=== PATIENT | male | born 1950 | race Caucasian/White ===

== ENCOUNTER 2016-06-24 18:20 | Emergency (ER) | payer OTHER ==
[2016-06-24 19:54] VITALS: BP 151/82
[2016-06-24] MEDS ORDERED: Tetan/Diph/Pertus SYR(Tdap)* 0.5 ML SYR(BOOSTRIX) use SYR IM ONE (21:07)
[2016-06-24] MEDS ORDERED: Benzoin Compound STICK ONE (21:08)
--- NOTE | 2016-06-24 21:53 | UC ---
Jean Pierre Mercado Erika, scribed for Carine Arreola DO on 06/24/16 at 2107 . Laceration HPI - HPI Summary HPI Summary: Patient is a 66-year-old male presenting to [facility] with a CC of laceration to the right middle finger at 18:00 today. Pt reports he cut his finger on a mug as he fell trying to catch a moth with the mug. He also reports an abrasion the the anterior left lower leg. He denies head injury. Pt currently denies pain to the finger. He does not believe there is a FB in the finger tip lac. He denies fever , chills, diaphoresis, sore throat, nausea, vomiting, diarrhea, and any pain. Hx asthma, gout. FHx cardiac disease. Pt is unsure of his most recent tetanus. - History Of Current Complaint Chief Complaint: UCLaceration Stated Complaint: FINGER LACERATION Time Seen by Provider: 06/24/16 21:05 Hx Obtained From: Patient Laceration Location: Finger - right middle finger Mechanism Of Injury: Sharp Trauma Onset/Duration: Sudden Onset, Lasting Hours, Still Present Severity: Mild Pain Intensity: 2 Pain Scale Used: 0-10 Numeric - Allergies/Home Medications Allergies/Adverse Reactions: Allergies Allergy/AdvReac Type Severity Reaction Status Date / Time Penicillins Allergy Severe Anaphylatic Verified 06/24/16 19:54 Shock Home Medications: Home Medications Ferrous Sulfate [Iron (Ferrous Sulfate)] 06/24/16 [History Confirmed 06/24/16] PMH/Surg Hx/FS Hx/Imm Hx - Additional Past Medical History Additional PMH: Gout Endocrine History Of: Denies: Diabetes, Thyroid Disease Cardiovascular History Of: Denies: Cardiac Disorders, Hypertension Respiratory History Of: Reports: Asthma Denies: COPD GI/ History Of: Denies: Ulcer - Surgical History Surgical History: Yes Surgery Procedure, Year, and Place: 02/2010 [facility]- FX 4th/5th (left) metacarpals w /screws - Family History Known Family History: Positive: Cardiac Disease Negative: Hypertension, Diabetes - Social History Occupation: Employed Full-time Alcohol Use: None Substance Use Type: None Smoking Status (MU): Never Smoked Tobacco When Did the Patient Quit Smoking/Using Tobacco: 40 YRS AGO - Immunization History Most Recent Tetanus Shot: UNKNOWN Review of Systems Constitutional: Negative Skin: Other - right middle finger laceration, LLE abrasion Eyes: Negative ENT: Negative Respiratory: Negative Cardiovascular: Negative Gastrointestinal: Negative Genitourinary: Negative Motor: Negative Neurovascular: Negative Musculoskeletal: Negative Neurological: Negative Psychological: Negative All Other Systems Reviewed And Are Negative: Yes Physical Exam Triage Information Reviewed: Yes Appearance: Well-Appearing, No Pain Distress, Well-Nourished Vital Signs: Initial Vital Signs Temp 99.2 F 06/24/16 19:50 Pulse 59 06/24/16 19:50 Resp 16 06/24/16 19:50 BP 151/82 06/24/16 19:50 Vital Signs Reviewed: Yes Eyes: Positive: Conjunctiva Clear. Negative: Discharge ENT: Positive: Hearing grossly normal. Negative: Muffled/hoarse voice Neck: Positive: Supple, Nontender Respiratory: Positive: Lungs clear, Normal breath sounds, No respiratory distress, No accessory muscle use Cardiovascular: Positive: RRR - noted to be 59 bpm on triage, No Murmur Musculoskeletal Exam: Normal Neurological: Positive: Alert, Muscle Tone Normal Psychological Exam: Normal Psychological: Positive: Age Appropriate Behavior Skin Exam: Other - 0.75 cm laceration at the tip of the right middle finger. 1 cm small abrasion to the left ferris Laceration Repair - Laceration Repair 1 Description: Linear Laceration Size After Repair: Length (cm) - 0.75 Cleansing Completed Via Routine Prep: Yes Closure Material: Skin Adhesive, SteriStrips - 1 Laceration Course/Dx - Differential Dx - Laceration/Wound Differental Diagnoses: Abrasion, Laceration Provider Diagnoses: finger lac Discharge - Discharge Plan Condition: Stable Disposition: HOME Patient Education Materials: Splint Care (ED), Finger Laceration (ED), Skin Adhesive Care (ED), Steristrips (ED) Referrals: Johnson Rodríguez MD [Primary Care Provider] - The documentation as recorded by the Jean Pierre redman Erika accurately reflects the service I personally performed and the decisions made by , Carine Arreola DO.
== END 2016-06-24 21:25 | disposition home or self-care (01) ==
LOC: UCEAST 18:20
DX: S61.212A Laceration without foreign body of right middle finger without damage to nail, initial encounter (principal); S80.812A Abrasion, left lower leg, initial encounter; W18.02XA Striking against glass with subsequent fall, initial encounter; Y93.89 Activity, other specified; Y92.9 Unspecified place or not applicable; Z23 Encounter for immunization; Z88.0 Allergy status to penicillin; Z87.891 Personal history of nicotine dependence
CPT/HCPCS: 12001; 90471; 90715; 99213; G0463

== ENCOUNTER 2016-09-19 11:11 | Day surgery (SDC) | payer MEDICARE, OTHER ==
[~2016-09-19 11:11] MED LIST: Buffered Lidocaine 1% SYRIN* 3 ML/SYR SYRINGE INTRADERM ONE
[2016-09-19] MEDS ORDERED: Clindamycin 900 MG IVPREMIX(* 900 MG/50 ML SDV IV ONE (11:17)
[2016-09-19] MEDS ORDERED: fentaNYL* 50 MCG/ML 2 ML VIAL (100 MCG VIAL) ONE (13:20)
[2016-09-19] MEDS ORDERED: Midazolam* 1 MG/ML 2 ML VIAL (2 MG) ONE (13:20)
[2016-09-19] MEDS ORDERED: Lidocaine 1% INJ* 10 MG/ML 30 ML SDV ONE (14:12)
--- NOTE | 2016-09-19 15:31 | SURGPN ---
Brief Operative Note - Surgery Procedures: Procedures OPERATIVE REPORT PRE-OP: Colon cancer POST-OP: Same PROCEDURE: Insertion of left chest wall 8F PowerPort SURGEON: MD Kyleigh ANESTHESIA:Local with [facility] Dr. Pittman ASST: none IVF: min EBL: min SPECIMEN:None DRAIN: none WOUND CLASS: One COMPLICATIONS: none TO PACU
--- NOTE | 2016-09-19 16:18 | RAD ---
HISTORY: Status post PowerPort placement COMPARISONS: June 10, 2015 VIEWS:1: Single frontal portable view of the chest at 3:55 PM FINDINGS: LINES AND TUBES: There is left-sided chest port from a subclavian approach with the tip overlying the superior vena cava CARDIOMEDIASTINAL SILHOUETTE: The cardiomediastinal silhouette is normal for portable technique. PLEURA: The costophrenic angles are sharp. No pleural abnormalities are noted. There is no appreciable pneumothorax. LUNG PARENCHYMA: There is minimal linear pleural parenchymal scarring of left lung base ABDOMEN: The upper abdomen is clear. There is no subphrenic gas. BONES AND SOFT TISSUES: No bone or soft tissue abnormalities are noted. IMPRESSION: LINES AND TUBES ABOVE. NO ACTIVE CARDIOPULMONARY DISEASE.
[2016-09-19 16:25] VITALS: BP 138/87
--- NOTE | 2016-09-20 07:23 | RAD ---
INDICATION: chest port placement COMPARISONS: None relevant TECHNIQUE: Fluoroscopy was provided for a vascular access procedure. Total fluoroscopy time is: 40 seconds FINDINGS: Spot images demonstrate a left-sided chest port from a subclavian approach IMPRESSION: FLUOROSCOPY WAS PROVIDED FOR A VASCULAR ACCESS PROCEDURE CPT II Codes: 6045F
--- NOTE | 2016-09-20 16:26 | OP ---
DATE OF OPERATION: 09/19/16 - [facility] DATE OF : 52 SURGEON: Dr. Arizmendi. MANAGEMENT LIAISON: None. ANESTHESIA: Local with monitored anesthesia care with Dr. Pittman. PRE-OP DIAGNOSIS: Metastatic colon cancer. POST-OP DIAGNOSIS: Metastatic colon cancer. OPERATIVE PROCEDURE: Insertion of an 8-Lao PowerPort percutaneously into the left subclavian vein with needle in. ESTIMATED BLOOD LOSS: Minimal. WOUND CLASSIFICATION: One. COMPLICATIONS: None. DRAINS: None. SPECIMENS: None. DESCRIPTION OF PROCEDURE: Written informed consent was obtained, the left and right chest were marked with indelible ink and preoperative antibiotics were administered. The patient was taken to the operating room and placed in the supine position. Sequential compression devices and a warming blanket were applied. Anesthesia was administered. The left and right chest and neck were prepped and draped in usual in the usual sterile fashion. Time-out verification was completed. The patient was placed Trendelenburg position and 1% lidocaine with epinephrine was infiltrated in the left infraclavicular area at the mid line and using an 18 -gauge Cook needle, after about the fourth pass under the clavicle, I was able to puncture the subclavian vein with good blood return and the guidewire was inserted without difficulty. This was confirmed to be in the superior vena cava by fluoroscopy. Transverse incision was made several fingers breadths below the puncture site and a subcutaneous pocket was made large enough to fit the port. The catheter was tunneled from the pocket site to the initial puncture site. Using the peel away sheath dilator, the catheter was inserted into the superior vena cava at just above the juncture with the right atrium. There was good blood returned and it flushed nicely at this level. The catheter was cut to the appropriate length, cut and attached to the port in usual fashion, which was then placed into the pocket. I was able to flush and draw blood once again in this position and the port was sutured in the subcutaneous tissue with two separate 3-0 Prolene sutures. Hemostasis was assured. The puncture site as well as the pocket site, incisions were closed with 3-0 and 4-0 Polysorb suture. Steri-Strips were applied. The patient was to start chemotherapy early in the morning, thus the right angle Ordoñez needle was then used to access the port, flushed with saline and subsequently with heparin and a dry sterile occlusive dressing was placed. The patient tolerated the procedure well and was taken to the recovery room in stable condition. Postprocedural chest x-ray showed the catheter to be in good position without evidence of pneumothorax. CC: [facility]; Dr. Roe Estes; Dr. Johnson Rodríguez * [id number]/[facility] #: [id number] MTDD
== END 2016-09-19 16:26 | disposition home or self-care (01) ==
LOC: OR 11:11
PROVIDERS: ATTEND Surgery
DX: C18.9 Malignant neoplasm of colon, unspecified (principal); C78.7 Secondary malignant neoplasm of liver and intrahepatic bile duct; J45.909 Unspecified asthma, uncomplicated; M10.9 Gout, unspecified; G47.33 Obstructive sleep apnea (adult) (pediatric)
CPT/HCPCS: 71010; 76000; C1788; J1642; J2001; J2250; J3010

== ENCOUNTER 2017-09-15 10:17 | Emergency (ER) | payer OTHER ==
[2017-09-15] MEDS ORDERED: HYDROmorphone INJ* 2 MG/ML CARPUJECT SYRINGE IV SLOW PU ONE (10:58)
[2017-09-15] MEDS ORDERED: Ondansetron INJ* 2 MG/ML VIAL IV ONE (10:58)
[2017-09-15] MEDS ORDERED: NS 0.9% 1000 ML* 1,000 ML IV ONE (10:58)
[2017-09-15 11:23] LABS: Hematocrit 36 % (42-52); Hemoglobin 11.8 g/dl (14.0-18.0); Mean Corpuscular HGB Conc 33 g/dl (31-36); Mean Corpuscular Hemoglobin 30 pg (27-31); Mean Corpuscular Volume 91 fL (80-94); Mean Platelet Volume 7.7 um3 (7.4-10.4); Platelet Count 182 10^3/ul (150-450); Red Cell Distribution Width 19 % (10.5-15)
[2017-09-15 11:43] LABS: INR 0.98 (0.77-1.02)
[2017-09-15 11:47] LABS: EGFR Non-African American 87.8 (>60)
[2017-09-15] MEDS ORDERED: Iohexol 300* (CONTRAST) 10 ML SDV IV ONE (11:56)
[2017-09-15 11:58] LABS: ABS Basophils 0 10^3/ul (0-0.2); ABS Eosinophils 0.1 10^3/ul (0-0.6); ABS Lymphocytes 0.7 10^3/ul (1.0-4.8); ABS Monocytes 0.5 10^3/ul (0-0.8); ABS Neutrophils 0.7 10^3/ul (1.5-7.7); ABS Nucleated RBC 0 10^3/ul; Eosinophil % 4.2 % (0-6); Lymphocyte % 34.4 % (25-47); Nucleated Red Blood Cells % 0.1
--- NOTE | 2017-09-15 12:24 | RAD ---
INDICATION: Small bowel obstruction. COMPARISON: Comparison is made with a prior CT of the abdomen and pelvis from August 04, 2017. TECHNIQUE: Frontal supine films of the abdomen were obtained. FINDINGS: The small bowel and colon appear nondistended. There are a couple small calcific densities which project over the pelvis suggestive of phleboliths. IMPRESSION: NO EVIDENCE FOR OBSTRUCTION.
--- NOTE | 2017-09-15 12:29 | RAD ---
INDICATION: Small bowel obstruction. COMPARISON: Comparison is made with a prior chest x-ray study from September 19, 2016. TECHNIQUE: Dual-energy PA views of the chest were obtained. FINDINGS: There is a PowerPort central venous catheter entering on the left side. The catheter tip projects over the right atrium. The heart is within normal limits in size. The lungs are clear. No pleural effusion is seen. There is an air-fluid level present in the right upper quadrant possibly within the colon. No free intraperitoneal air is seen. IMPRESSION: 1. NO EVIDENCE FOR ACUTE DISEASE IN THE CHEST. 2. THERE IS A SOMEWHAT UNUSUAL AIR-FLUID LEVEL IN THE RIGHT UPPER QUADRANT LIKELY WITHIN THE HEPATIC FLEXURE. RECOMMEND A CT OF THE ABDOMEN AND PELVIS FOR FURTHER EVALUATION.
--- NOTE | 2017-09-15 14:01 | RAD ---
Indication: Abdominal pain, small bowel obstruction CT of the abdomen and pelvis was performed after oral and IV contrast demonstration. Coronal and sagittal reconstructed images were obtained. Comparison is made with previous exam dated August 04, 2017. The lung bases demonstrate no pleural fluid. No evidence of alveolar consolidation is noted. Heart demonstrates no pericardial effusion. The patient has had a right lobe liver resection. Lesions in the left lobe of liver appear to be less prominent on the current exam than on the prior exam. They are barely perceptible on the current exam and appears smaller. No intrahepatic ductal dilatation is noted. The left portal vein appears patent. The spleen is normal in size. The pancreas demonstrates suggestion of some debris in the duodenum. The pancreas demonstrates no mass or pancreatic duct dilatation. Spleen is normal in size. No adrenal lesions are noted. The kidneys demonstrate symmetric nephrograms without focal lesions. Atherosclerotic aorta is noted. No dilated loops of bowel are noted. CT of the pelvis demonstrates distended colon filled with contrast stool and air. There is focal segmental thickening of the sigmoid colon with likely underlying diverticulitis. Adjacent amount of fluid is noted. There is additionally a stricture at the rectosigmoid junction which was present previously as well. Prostate is unremarkable. No hernias are noted. IMPRESSION: There is segmental wall thickening with fluid surrounding the sigmoid colon. This is new since previous exam and may represent underlying diverticulitis or colitis. There is proximal dilatation of the colon. There is a stricture at the rectosigmoid colon which was present previously and is not significantly changed since previous exam. Postoperative changes are noted in the right lobe of the liver. Overall appearance of the left lobe is not significantly changed since prior exam. Previously identified hepatic lesions appear to be smaller than on prior exam.
[2017-09-15] MEDS ORDERED: Levofloxacin 500 MG IVPREMIX(* 500 MG/100 ML BAG IVPB ONE (14:25)
[2017-09-15] MEDS ORDERED: metroNIDAZOLE IV 500 MG/100ML* 500 MG/100 ML BAG IVPB ONE (14:25)
[2017-09-15 14:59] LABS: Urine Appearance Clear; Urine Blood Negative (Negative); Urine Color Amber; Urine Ketones Trace (Negative); Urine Protein Negative (Negative); Urine Specific Gravity > 1.060 (1.010-1.030); Urine Urobilinogen Positive (Negative)
[2017-09-15 17:06] VITALS: BP 151/89
--- NOTE | 2017-09-15 17:31 | CONS ---
CC: Dr. Johnson Rodríguez; Dr. Estes * EMERGENCY ROOM CONSULTATION NOTE: DATE OF CONSULTATION: 09/15/17 PRIMARY ONCOLOGIST: Dr. Roe Estes. PRIMARY CARE PROVIDER: Dr. Johnson Rodríguez. EMERGENCY DEPARTMENT PHYSICIAN: Dr. Sevilla. CHIEF COMPLAINT: Abdominal pain and nausea. HISTORY OF PRESENT ILLNESS: This is a 67-year-old gentleman with metastatic colon cancer, currently being treated with FOLFIRI and Avastin, who presented to the emergency department this morning with complaints of abdominal pain, nausea and vomiting. The patient states that for the last several days he has had an odd sensation where he feels as if he needs to defecate frequently, but it is generally a small volume of stool and he noticed a small amount of blood while wiping a couple of days ago. He had no significant abdominal pain at that time, but awoke this morning with rather severe abdominal pain, which prompted his visit to the emergency department. He took 1 dose of oxycodone overnight last night and 2 tablets of hyoscyamine shortly after which he vomited. He received Dilaudid and IV fluids in the emergency department and reported significant improvement in his symptoms. He has not vomited again since. He denies any fever or chills and states that he has otherwise been feeling well. The patient generally has some abdominal cramping and diarrhea associated with treatment, but states that these symptoms he has had today and in the last few days with his bowel changes are different than what they have been in the past. He was scheduled for his next cycle of chemotherapy earlier this week, but that was delayed due to neutropenia and thrombocytopenia. Again, he has been afebrile at home. He denies any cough or shortness of breath. No other new symptoms. PAST MEDICAL HISTORY: 1. Metastatic colorectal cancer. 2. Asthma. 3. Gout. HOME MEDICATIONS: 1. Albuterol 2 puffs inhaled every 4 hours as needed for shortness of breath. 2. Arixtra 7.5 mg subcutaneous daily. 3. Colchicine 1 tablet p.o. twice daily as needed for gout. 4. Compazine 10 mg 4 times daily as needed for nausea and vomiting. 5. Flovent 1 puff inhaled twice daily. 6. Hyoscyamine 1 tablet sublingual every 4 hours as needed for abdominal cramping. 7. Ondansetron 4 mg p.o. every 4 hours as needed for nausea and vomiting. 8. Oxycodone 5 to 10 mg p.o. every 6 hours as needed for pain. PHYSICAL EXAM: Initial vitals: Temperature 96 degrees Fahrenheit, pulse 88 beats per minute, respiratory rate 16, oxygen saturation 100% on room air, and blood pressure 149/74 mmHg. General: This is a relatively well appearing 67- year-old gentleman in no acute distress and accompanied by his daughter. HEENT : Head is normocephalic, atraumatic. Mucous membranes are mildly dry. Neck: Neck is supple and free of lymphadenopathy. Cardiovascular: Heart has a regular rate and rhythm without murmurs, rubs, or gallops. Respiratory: Lungs are clear to auscultation without wheezes, crackles, or rhonchi. Abdomen: Abdomen is soft. Minimal tenderness to palpation in the periumbilical and left lower quadrant. Bowel sounds are present. Extremities: No edema noted. Skin : No concerning rashes or lesions. DIAGNOSTIC STUDIES/LAB DATA: Laboratory evaluation: CBC shows a total white blood cell count of 2000 with an absolute neutrophil count of 700, hemoglobin of 11.8 g/dL and a platelet count of 182,000. INR of 0.98. Comprehensive metabolic panel shows a sodium of 137 mmol/L, potassium 3.8, serum bicarb of 22 , BUN 14, creatinine 0.87. Total bilirubin 1.1. Transaminases within normal limits. Lactic acid elevated at 2.7. CRP of 6.1. Lipase normal at 12. Urinalysis significant for trace ketones and positive urobilinogen. Imagin. Chest x-ray shows no acute process. 2. CT abdomen and pelvis shows thickening of the sigmoid wall with a stricture at the rectosigmoid junction, which appears to be unchanged. He has multiple hepatic lesions, which appeared to be smaller than on prior exam in July of this year. 3. Abdominal x-ray shows no evidence of obstruction. 4. EKG shows a normal sinus rhythm. ASSESSMENT AND PLAN: This is a 67-year-old gentleman with metastatic colorectal cancer, under the care of Dr. Estes, currently receiving FOLFIRI and Avastin with treatment delay this week for neutropenia and thrombocytopenia, who presented to the emergency department with complaints of abdominal pain, nausea and vomiting with evidence of diverticulitis or colitis on CT and neutropenia, but afebrile and the patient appears relatively well on exam. Oncology group was asked to evaluate in the emergency department for possible admission. The patient feels well enough to manage symptoms at home and without a measured fever; this seems to be appropriate. 1. Diverticulitis/colitis - the patient is tolerating oral fluids well. He received IV fluids in the emergency department as well as a dose of Levaquin and Flagyl. We will continue oral Flagyl and Levaquin for an additional 10 days with doses of 750 mg p.o. daily x10 days for the Levaquin and 500 mg p.o. 3 times daily for 10 days for the Flagyl. He has antiemetics and analgesics available to him at home in appropriate quantities. 2. Neutropenia - the patient is afebrile with an absolute neutrophil count of 700. No growth factors are indicated at this time and again as discussed above, we will manage his colitis on an outpatient basis. 3. Metastatic colorectal cancer - the patient is under the care of Dr. Estes, receiving FOLFIRI and Avastin with last treatment cycle starting on 08/29/17, delayed this week due to neutropenia and thrombocytopenia. The patient will likely need to be delayed an additional week due to his persistent neutropenia and development of new infection. DISPOSITION: The patient is being discharged to home. I recommend 10 days of Levaquin and Flagyl as described above. He will follow up in Oncology Clinic on Monday. It is unlikely that he will receive treatment at that time, but we will plan to repeat labs and evaluate his clinical improvement from the course of colitis. He received explicit instructions to contact the on-call physician or return to the emergency department if he develops a fever, worsening pain, or intractable nausea and vomiting. TRINA LOVE [id number]/[facility] #: [id number] JASMINA
--- NOTE | 2017-09-16 10:24 | ED ---
Karson Mercado Stephanie, scribed for Jordan Sevilla on 09/15/17 at 1103 . GI/ HPI - HPI Summary HPI Summary: The pt is a 67 y/o M presenting to the ED with c/o abd pain that began this morning. Symptoms include nausea, diarrhea, constipation, blood in stool and pain during BM. He denies CP and SOB. The pt reports passing gas yesterday but not today. The pt states he took a laxative last night. He saw Dr. Rodríguez yesterday for a routine visit. The pt gives verbal permission to speak freely in front of her regarding today's visit. The pt is undergoing chemotherapy. - History of Current Complaint Chief Complaint: EDAbdPain Time Seen by Provider: 09/15/17 10:44 Stated Complaint: ABD PAIN,VOMITING Hx Obtained From: Patient Onset/Duration: Started Hours Ago - 3, Still Present Timing: Constant, Lasting Hours - 3 Current Severity: Moderate Pain Intensity: 5 Location of Pain: Diffuse Associated Signs and Symptoms: Positive: Nausea, Vomiting, Constipation, Blood w /Stool, Diarrhea, Abdominal Pain Aggravating Factor(s): Nothing Alleviating Factor(s): Nothing - Allergy/Home Medications Allergies/Adverse Reactions: Allergies Allergy/AdvReac Type Severity Reaction Status Date / Time Penicillins Allergy Unknown Verified 09/15/17 10:33 Reaction Details Home Medications: Home Medications Fondaparinux* [Arixtra*] 7.5 mg SUBCUT DAILY 09/15/17 [History Confirmed ] Ondansetron TAB* [Zofran 4 MG Tab*] 4 mg PO Q6H PRN 09/15/17 [History Confirmed 09/15/17] Promethazine TAB* [Phenergan Tab*] 25 mg PO Q6H PRN 09/15/17 [History Confirmed 09/15/17] oxyCODONE/Acetamin 5/325 MG* [Percocet 5/325 TAB*] 1 - 2 tab PO Q8H PRN [History Confirmed 09/15/17] PMH/Surg Hx/FS Hx/Imm Hx Endocrine/Hematology History: Denies: Hx Diabetes, Hx Thyroid Disease Cardiovascular History: Denies: Hx Hypertension, Hx Pacemaker/ICD Respiratory History: Reports: Hx Asthma, Hx Sleep Apnea - mild, had testing, but does not require BiPAP/CPAP Denies: Hx Chronic Obstructive Pulmonary Disease (COPD) GI History: Reports: Other GI Disorders - Colon CA diagnosed August 2016 Denies: Hx Ulcer History: Denies: Hx Renal Disease Musculoskeletal History: Reports: Hx Orthopedic Injury - 02/2010 (left) metacarpal FX w/surgery Sensory History: Reports: Hx Contacts or Glasses - wears contacts, will wear glasses day of surgery Denies: Hx Cataracts, Hx Glaucoma, Hx Hearing Aid Opthamlomology History: Reports: Hx Contacts or Glasses - wears contacts, will wear glasses day of surgery Denies: Hx Cataracts, Hx Glaucoma Psychiatric History: Denies: Hx Panic Disorder - Cancer History Cancer Type, Location and Year: COLON Hx Chemotherapy: Yes - Surgical History Surgery Procedure, Year, and Place: 02/2010 [facility]- FX 08/24 (left) metacarpals w /screws, PORTAL VEIN EMBOLIZATION FEBRUARY 2017 Hx Anesthesia Reactions: No Infectious Disease History: No Infectious Disease History: Denies: Hx Hepatitis, Hx Human Immunodeficiency Virus (HIV), Traveled Outside the [place] in Last 30 Days - Family History Known Family History: Positive: Cardiac Disease Negative: Hypertension, Diabetes - Social History Occupation: Retired Lives: With Family Alcohol Use: Rare Alcohol Amount: 1-2 drinks a month Hx Substance Use: No Substance Use Type: Reports: None Hx Tobacco Use: No Smoking Status (MU): Never Smoked Tobacco Amount Used/How Often: smoked for about 1 year, 1 pk/month Have You Smoked in the Last Year: No Review of Systems Negative: Fever Negative: Chest Pain Negative: Shortness Of Breath Positive: Abdominal Pain, Vomiting, Diarrhea, Nausea, Other - constipation, pain with BM, blood in stool All Other Systems Reviewed And Are Negative: Yes Physical Exam - Summary Physical Exam Summary: Appearance: Ill-appearing, mild pain distress Skin: warm, dry, reflects adequate perfusion Head/face: normal Eyes: EOMI, MAO ENT: normal Neck: supple, non-tender Respiratory: CTA, breath sounds present Cardiovascular: RRR, pulses symmetrical Abdomen: diffuse tenderness in abd, mild distension, healed scar in abd, soft Bowel: present Musculoskeletal: normal, strength/ROM intact Neuro: normal, sensory motor intact, A&Ox3 Triage Information Reviewed: Yes Vital Signs On Initial Exam: Initial Vitals Temp Pulse Resp BP Pulse Ox 96 F 88 16 149/74 100 09/15/17 10:33 04/27/18 10:33 09/15/17 10:33 09/15/17 10:33 09/15/17 10:33 Vital Signs Reviewed: Yes Diagnostics - Vital Signs Vital Signs Temp Pulse Resp BP Pulse Ox 09/15/17 10:47 84 98 09/15/17 10:33 96 F 88 16 149/74 100 - Laboratory Result Diagrams: 09/15/17 11:05 09/15/17 11:05 Lab Statement: Any lab studies that have been ordered have been reviewed, and results considered in the medical decision making process. - Radiology CXR Xray Interpretation: No Acute Changes Radiology Interpretation Completed By: Radiologist - 1. NO EVIDENCE FOR ACUTE DISEASE IN THE CHEST. 2. THERE IS A SOMEWHAT UNUSUAL AIR-FLUID LEVEL IN THE RIGHT UPPER QUADRANT LIKELY WITHIN THE HEPATIC FLEXURE. RECOMMEND A CT OF THE ABDOMEN AND PELVIS FOR FURTHER EVALUATION. ED physician has reviewed this report. Abdomen XRay Xray Interpretation: No Acute Changes Radiology Interpretation Completed By: Radiologist - NO EVIDENCE FOR OBSTRUCTION. ED physician has reviewed this report. - CT Abdomen/Pelvis CT Interpretation: Positive (See Comments) CT Interpretation Completed By: Radiologist - There is segmental wall thickening with fluid surrounding the sigmoid colon. This is new since previous exam and may represent underlying diverticulitis or colitis. There is proximal dilatation of the colon. There is a stricture at the rectosigmoid colon which was present previously and is not significantly changed since previous exam. Postoperative changes are noted in the right lobe of the liver. Overall appearance of the left lobe is not significantly changed since prior exam. Previously identified hepatic lesions appear to be smaller than on prior exam. ED physician has reviewed this report. - EKG 11:09 Cardiac Rate: NL EKG Rhythm: Sinus Rhythm - 78 BPM EKG Interpretation: No acute changes GIGU Course/Dx - Course Course Of Treatment: The pt is a 67 y/o M presenting to the ED with c/o abd pain that began this morning. Symptoms include nausea, diarrhea, decreased BM, blood in stool and pain during BM. He denies CP and SOB. Blood work, urinalysis , abd XR, chest XR, abdomen/pelvis CT were obtained. CT abdomen/pelvis shows there is segmental wall thickening with fluid surrounding the sigmoid colon. This is new since previous exam and may represent underlying diverticulitis or colitis. Discussed with Dr. Estes who came to see the pt in the ED. Pt will be discharged home with prescriptions for Levaquin and Flagyl. - Diagnoses Differential Diagnoses - Male: Diverticulitis, Bowel Obstruction, Dehydration, Gastroenteritis (Viral), Ischemic Bowel, Neoplasm, Urinary Tract Infection Provider Diagnoses: Diverticulitis - Physician Notifications Discussed Care Of Patient With: Roe Estes Time Discussed With Above Provider: 14:00 Instructed by Provider To: MD Will See In ED Discharge - Sign-Out/Discharge Documenting (check all that apply): Discharge/Admit/Transfer - discharge - Discharge Plan Condition: Stable Disposition: HOME Prescriptions: Levofloxacin TAB* [Levaquin TAB*] 750 mg PO DAILY #10 tab metroNIDAZOLE [Flagyl 500 MG TAB] 500 mg PO TID #30 tab Patient Education Materials: Diverticulitis (ED) Referrals: Johnson Rodríguez MD [Primary Care Provider] - Roe Estes MD [Medical Doctor] - 09/19/17 Additional Instructions: Instructions: 1. Please take antibiotics as directed for 10 days 2. Follow up in the oncology clinic on Monday for labs and evaluation - you may need to be delayed an additional week for treatment - Billing Disposition and Condition Condition: STABLE Disposition: HOME The documentation as recorded by the Karson redman Stephanie accurately reflects the service I personally performed and the decisions made by Roel betancur Emmanuel.
== END 2017-09-15 17:20 | disposition home or self-care (01) ==
LOC: ED 10:17
DX: K57.92 Diverticulitis of intestine, part unspecified, without perforation or abscess without bleeding (principal); Z87.891 Personal history of nicotine dependence; J45.909 Unspecified asthma, uncomplicated; C19 Malignant neoplasm of rectosigmoid junction; M10.9 Gout, unspecified
CPT/HCPCS: 36415; 71045; 74018; 74177; 80053; 81003; 83605; 83690; 84484; 85025; 85610; 85730; 86140; 87040; 93005; 96360; 96374; 96375; 99214; 99283; J1170; J1956; J2405; J3490; Q9967

== ENCOUNTER 2018-05-28 13:51 | Emergency (ER) | payer OTHER ==
[2018-05-28] MEDS ORDERED: Lidocaine 1%* 5 ML VIAL INJ ONE (14:21)
--- NOTE | 2018-05-28 14:54 | UC ---
Head Injury HPI - HPI Summary HPI Summary: 68 year old male presents for head injury and right arm injury. States he was putting out recycling, tried to jump on cardboard to force into recylcling container, lost his balance and fell hitting his head and right forearm on asphalt driveway. Has a laceration above his right eyebrow with bruising and swelling. Bleeding is controlled. Tetanus status up to date. Mild headache. Also reports right forearm and elbow pain with movement. 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 Denies LOC, visual disturbances, dizziness, vertigo, neck pain, chest pain, palpitations, abdominal pain, nausea, vomiting, weakness, numbness, or tingling of extremities. - History Of Current Complaint Chief Complaint: UCHeadInjury Stated Complaint: HEAD INJURY Time Seen by Provider: 05/28/18 14:03 Hx Obtained From: Patient Pain Intensity: 7 - Allergies/Home Medications Allergies/Adverse Reactions: Allergies Allergy/AdvReac Type Severity Reaction Status Date / Time Penicillins Allergy Unknown Verified 05/28/18 14:06 Reaction Details Home Medications: Home Medications Apixaban* [Eliquis*] 2.5 mg PO BID 05/28/18 [History Confirmed 05/28/18] PMH/Surg Hx/FS Hx/Imm Hx Respiratory History: Asthma Cancer History: Colorectal Cancer - Stage 4 with metastasis to the liver - Surgical History Surgical History: Yes Surgery Procedure, Year, and Place: 02/2010 [facility]- FX 4th/5th (left) metacarpals w /screws, PORTAL VEIN EMBOLIZATION FEBRUARY 2017, ILEOSTOMY 10/2017 - Family History Known Family History: Positive: Cardiac Disease Negative: Hypertension, Diabetes - Social History Occupation: Employed Full-time Lives: With Family Alcohol Use: None Alcohol Amount: 1-2 drinks a month Substance Use Type: None Smoking Status (MU): Never Smoked Tobacco Amount Used/How Often: smoked for about 1 year, 1 pk/month Have You Smoked in the Last Year: No When Did the Patient Quit Smoking/Using Tobacco: 40 YRS AGO - Immunization History Most Recent Tetanus Shot: Within past 5 years Review of Systems All Other Systems Reviewed And Are Negative: Yes Constitutional: Negative: Fever, Chills Skin: Positive: Other - See HPI Eyes: Negative: Blurred Vision, Diplopia, Photophobia ENT: Negative: Epistaxis, Dental Pain Respiratory: Negative: Shortness Of Breath Cardiovascular: Negative: Palpitations, Chest Pain Gastrointestinal: Negative: Abdominal Pain, Vomiting, Diarrhea, Nausea Genitourinary: Positive: Negative Motor: Negative: Weakness Neurovascular: Negative: Decreased Sensation Musculoskeletal: Positive: Arthralgia - right elbow, Decreased ROM - right elbow Neurological: Positive: Headache. Negative: Weakness, Paresthesia, Numbness Is Patient Immunocompromised?: Yes - Chemotherapy Physical Exam - Summary Physical Exam Summary: GENERAL APPEARANCE: Well developed, well nourished, alert and cooperative, and appears to be in no acute distress. HEAD: There is a large area of edema above the right eyebrow with multiple superficial abrasions. Central to the area of edema is a stellate laceration consisting of a 2 cm linear laceration that extends through the dermis and a 1 cm linear laceration that extends through the dermis (see diagram). Bleeding is controlled. There is also some right supraorbital eccymosis present. EYES: PERRL, EOM intact. Vision is grossly intact. EARS: External auditory canals and tympanic membranes clear, hearing grossly intact. NOSE: No nasal discharge. THROAT: Oral cavity and pharynx normal. No inflammation, swelling, exudate, or lesions. Teeth and gingiva in good general condition. NECK: Neck supple, non-tender. Full painless ROM. CARDIAC: Normal S1 and S2. No S3, S4 or murmurs. Rhythm is regular. There is no peripheral edema, cyanosis or pallor. Extremities are warm and well perfused. Capillary refill is less than 2 seconds. Peripheral pulses intact. LUNGS: Clear to auscultation without rales, rhonchi, wheezing or diminished breath sounds. ABDOMEN: Positive bowel sounds. Soft, nondistended, nontender. No guarding or rebound. No masses or hepatosplenomegally. MUSKULOSKELETAL: Tenderness to the lateral aspect of the right elbow. Painful passive and active ROM. Patient is not able to fully extend the right arm due to pain. No lesions, erythema, ecchymosis, or gross deformity noted. BACK: Examination of the spine reveals normal gait and posture, no spinal deformity or tenderness, decreased range of motion or muscular spasm. EXTREMITIES: No significant deformity or joint abnormality. No edema. NEUROLOGICAL: CN II-XII intact. Strength and sensation symmetric and intact throughout. Reflexes 2+ throughout. Cerebellar testing normal. SKIN: Skin normal color, texture and turgor with no lesions or eruptions. Triage Information Reviewed: Yes Vital Signs: Initial Vital Signs Temp 98.1 F 05/28/18 14:01 Pulse 78 05/28/18 14:01 Resp 18 05/28/18 14:01 BP 149/85 05/28/18 14:01 Pulse Ox 99 05/28/18 14:01 Vital Signs Reviewed: Yes Images Head: 1 - 2 cm linear laceration that extends through the dermis 2 - 1 cm linear laceration that extends through the dermis 3 - Multiple superficial abrasions with significant edema and supraorbital ecchymosis Procedures - Procedure Summary Procedure Summary: Procedure note: Forehead laceration repair Informed consent was obtained before procedure started and the appropriate timeout was taken. The area was prepped and draped in the usual sterile fashion. Local anesthesia was achieved using 3 ml of lidocaine 1% without epinephrine. The wound was copiously irrigated with sterile saline and chlorhexadine solution. The wound was thoroughly explored under a bloodless field and no foreign body noted. The wound margins were brought into good alignment and a total of 5 interrupted sutures were placed using 5-0 Ethilon. Estimated blood loss was minimal. Antibiotic ointment and a nonstick gauze dressing was applied to the area. Anticipatory guidance, as well as standard post-procedure care was discussed with patient. Return precautions are given. The patient tolerated the procedure well without complications. Patient is to follow up in 7 days for suture removal and evaluation of the laceration. Diagnostics - Radiology No standard instances Radiology Interpretation Completed By: Radiologist Summary of Radiographic Findings: Patient Name: RAMEZ RENO Medical Record#: [id number]. Ordering Physician: Earle Sylvester NP Acct.#: [id number]. : 1950 Age: 68 Sex: M Location: [facility]. Exam Date: 12/07 1420 ADM Status: REG ER. Order Information: ELBOW RIGHT 2 VWS. Accession Number: [id number]. CPT: 22040. INDICATION: RIGHT posterior elbow pain with forearm movement post fall. COMPARISON: No relevant prior exams available on the [facility] for comparison. TECHNIQUE: AP and lateral views RIGHT elbow. AP and lateral views RIGHT forearm. REPORT: Displacement of the anterior fat pad consistent with joint effusion. Subtle impaction fracture at the radial head neck junction. No additional fracture evident at the elbow or forearm. Normal articular alignment at the elbow and wrist. IMPRESSION: #. Radiographs of the RIGHT elbow and forearm are remarkable for a subtle impaction fracture at the radial head neck junction with associated elbow joint effusion. No additional fracture evident. Patient Name: RAMEZ RENO Medical Record#: [id number]. Ordering Physician: Earle Sylvester NP Acct.#: [id number]. : 1950 Age: 68 Sex: M Location: [facility]. Exam Date: 05/28/18 142 ADM Status: REG ER. Order Information: CT BRAIN WO. Accession Number: [id number]. CPT: 23638. Indication: Head injury , and on anticoagulants. CT of the brain performed without IV contrast. Ventricular structures are midline. No midline shift is noted. The extra-axial spaces are unremarkable. There is no evidence of intracranial mass or hemorrhage. No other high or low density lesions identified. Mastoid air cells and paranasal sinuses are otherwise unremarkable. IMPRESSION: No intracranial mass or hemorrhage is noted. Head Injury Course/Dx - Course Course Of Treatment: 68 year old male presents for head injury and right arm injury. States he was putting out recycling, tried to jump on cardboard to force into recylcling container, lost his balance and fell hitting his head and right forearm on asphalt driveway. Has a laceration above his right eyebrow with bruising and swelling. Bleeding is controlled. Tetanus status up to date. Mild headache. Also reports right forearm and elbow pain with movement. 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 Denies LOC, visual disturbances, dizziness, vertigo, neck pain, chest pain, palpitations, abdominal pain, nausea, vomiting, weakness, numbness, or tingling of extremities. Afebrile. Mildly hypertensive otherwise vital signs within normal parameters. Exam reveals an alert male in no acute distress. There was a large area of edema above the right eyebrow with multiple superficial abrasions. Central to the area of edema is a stellate laceration consisting of a 2 cm linear laceration that extends through the dermis and a 1 cm linear laceration that extends through the dermis. Bleeding was controlled. There was also some right supraorbital eccymosis present. Patient also had tenderness to the lateral aspect of the right elbow with painful passive and active ROM. Patient was not able to fully extend the right arm due to pain. Exam was otherwise unremarkable. CT head was normal. X-rays showed a subtle impact fracture of the junction of the radial head and neck. The laceration was cleaned, irrigated, and closed using a total of 5 interrupted sutures using 5-0 Ethilon. Wound care instructions and symptoms of infection were reviewed with the patient. He is to return in 7 days for suture removal. His right arm was placed in a sling and he was instructed on use and ROM exercises. Circulation and sensation were normal pre and post application. He is to follow up with orthopedic surgery as instructed by the ortho clinic. Warning symptoms were reviewed with the patient. Verbalizes understanding and agrees with POC. - Differential Dx/Diagnosis Differential Diagnosis/HQI/PQRI: Cerebral Contusion, Cervical Sprain, Concussion Without LOC, Contusion, Laceration, Orbital Fracture, Other - elbow fracture Provider Diagnosis: Closed head injury without loss of consciousness, Laceration of forehead, Abrasion of forehead, Right radial head fracture Discharge - Sign-Out/Discharge Documenting (check all that apply): Patient Departure All imaging exams completed and their final reports reviewed: Yes - Discharge Plan Condition: Stable Disposition: HOME Patient Education Materials: Care For Your Stitches (ED), Elbow Fracture (ED), How to Use a Sling (ED), Abrasion (ED), Facial Laceration (ED) Referrals: Johnson Rodríguez MD [Primary Care Provider] - Lainey Machado MD [Medical Doctor] - (They will call you with an appointment. Call the office tomorrow if you do not hear from them.) Additional Instructions: The x-rays performed in the clinic today showed a subtle impact fracture or the radial head. The CT scan of the head was normal. Wear the sling that was provided to you in the clinic for the next 2 days for support. Take your arm out of the sling every couple of hours and perform the range of motion exercises we discussed then put your arm back in the sling. ONLY USE THE SLING FOR 2 DAYS. Use your pain medication as directed for pain. Leave the dressing that was applied to your forehead laceration and abrasion in place for the next 24 hours. After 24 hours you may remove the dressing and shower/wash your hair as normal. You should gently clean the wound with a mild soap and water at least once a day. After cleaning apply a small amount of antibiotic ointment to the laceration and abrasion and cover the wound with a gauze dressing. Return here or to your primary care provider in 7 days to have the sutures removed. Watch for signs of infection including fever greater than 100.5 F, redness that spreads away from the wound, increased swelling, pain that is not managed by you pain medication, or pus draining from the wound. Seek immediate medical attention if any of these should occur. Follow up at the [facility]opedic [facility]. They are going to call you with an appointment after the orthopedic surgeon has a chance to review your x-rays. Call them tomorrow if you do not hear from them by noon. Seek immediate medical attention in the emergency room if you develop severe headache, visual disturbances, dizziness, confusion, slurred speech or difficulty speaking, facial droop, numbness, tingling, or weakness of the extremities, neck pain, chest pain, feel as if you heart is racing or skipping beats, shortness of breath, abdominal pain, vomiting, or any worsening of symptoms. - Billing Disposition and Condition Condition: STABLE Disposition: Home
[2018-05-28 16:15] VITALS: BP 135/69
== END 2018-05-28 16:00 | disposition home or self-care (01) ==
LOC: UCEAST 13:51
DX: S01.81XA Laceration without foreign body of other part of head, initial encounter (principal); S52.121A Displaced fracture of head of right radius, initial encounter for closed fracture; S00.81XA Abrasion of other part of head, initial encounter; C18.9 Malignant neoplasm of colon, unspecified; Z88.0 Allergy status to penicillin; Z79.01 Long term (current) use of anticoagulants; W19.XXXA Unspecified fall, initial encounter; W51.XXXA Accidental striking against or bumped into by another person, initial encounter; Y93.39 Activity, other involving climbing, rappelling and jumping off; Y92.9 Unspecified place or not applicable
CPT/HCPCS: 12011; 70450; 99211; G0463